=== PATIENT | female | born 1930 | race Caucasian/White ===

== ENCOUNTER 2018-08-05 12:26 | Emergency (ER) | payer OTHER ==
[~2018-08-05] VITALS: Ht 165.1 cm; Wt 55.0 kg
[2018-08-05 12:38] VITALS: Ht 165.1 cm; Wt 55.0 kg
[2018-08-05] MEDS ORDERED: LEVETIRACETAM 500 MG (PMX) 100 ML IVPB STA (12:43)
[2018-08-05] MEDS ORDERED: SOD CHLORIDE 0.9% 500 ML IV STA (12:43)
[2018-08-05] MEDS ORDERED: KEP100S PO (14:09)
[2018-08-05] MEDS ORDERED: MORP10DI10 SL (14:10)
[2018-08-05] MEDS ORDERED: QUET25TA PO (14:12)
--- NOTE | 2018-08-05 14:14 | ERD ---
ER Documentation Chief Complaint Chief Complaint seizure lasted 30 secs while sitting on the dinning room table HPI This is an 87-year-old female who is here for seizure. She had 30 second generalized tonic-clonic seizure just prior to arrival with a postictal state according to EMS. Currently the patient is awake but is still a bit confused being postictal. No other known history of events she takes Keppra ROS All systems reviewed and are negative except as per history of present illness. Medications Home Meds Active Scripts Ciprofloxacin Hcl* (Ciprofloxacin Hcl*) 500 Mg Tablet, 500 MG PO BID for 7 Days, TAB Prov:CORONA FRANKLIN DO 08/05/18 Reported Medications Acetaminophen (PAIN & FEVER) 500 Mg Tablet, 1000 MG PO Q4H PRN for PAIN OR FE JEFF, TAB 08/05/18 Lorazepam* (Ativan* Intensol) 2 Mg/Ml Soln, 0.5 ML PO Q6H PRN for AGITATION, #1 BOTTLE 08/05/18 Ipratropium-Albuterol (Ipratropium-Albuterol) 0.5-3 Mg/3 Ml Ampul.neb, 3 ML INHALATION Q6, #30 VIAL 08/05/18 Atropine Sulfate/0.9 %Sod Chlr (Atropine 0.01%-Ns Eye Drops) 10 Ml Drops, 3 DRP PO Q3H, BOTTLE 08/05/18 Acetaminophen* (Feverall* Supp) Unknown Strength Supp.rect, 650 MG WI Q6H PRN for PAIN OR FEVER>100F, SUPP.RECT 08/05/18 Quetiapine Fumarate* (Seroquel*) 25 Mg Tablet, 25 MG PO BID, #60 TAB TAKE 1 TAB-BID, AND 1 TAB Q4H- NEEDED 08/05/18 Morphine Sulfate* (Morphine* Liq) 10 Mg/0.5 Ml Disp.syrin, 0.05 ML SL Q6H PRN for PAIN, ML 08/05/18 Levetiracetam* (Keppra* (Ped)) 100 Mg/Ml Liq, 5 ML PO BID for 30 Days, BOTTLE 08/05/18 Allergies Allergies: Coded Allergies: No Known Allergy (Unverified , 08/05/18) FmHx Unable to obtain due to mental status Physical Exam Vitals Vital Signs Date Temp Pulse Resp B/P (MAP) Pulse Ox O2 O2 Flow FiO2 Time Delivery Rate 08/05/18 97.8 88 16 160/89 100 Nasal 2.0 15:47 (112) Cannula 08/05/18 87 15 155/99 100 Nasal 2.0 13:47 (117) Cannula 08/05/18 98.1 95 18 103/52 99 12:38 (69) Physical Exam Const: Well-developed, well-nourished Head: Atraumatic, normocephalic Eyes: Normal Conjunctiva, PERRLA, EOMI, normal sclera, no nystagmus ENT: Normal External Ears, Nose and Mouth, moist mucus membranes. Neck: Full range of motion. No meningismus, no lymphadenopathy. Resp: Clear to auscultation bilaterally, no wheezing, rhonchi, rales Cardio: Regular rate and rhythm, no murmurs, S1 S2 present Abd: Soft, non tender x 4, non distended. Normal bowel sounds, no guarding or rebound, no pulsitile abdominal masses or bruits Skin: No petechiae or rashes, no ecchymosis , no maculopapular rash Back: No midline or flank tenderness Ext: No cyanosis, or edema, FROM x 4, normal inspection, neurovasc ularly intact x 4 Neur: Awake and alert, STR 5/5 x 4, sensation intact x 4, no focal findings, cerebellum intact Psych: Unable to assess Result Diagram: 08/05/18 1326 08/05/18 1326 Results 24 hrs Laboratory Tests Test 08/05/18 13:26 08/05/18 15:15 White Blood Count 11.2 10^3/ul Red Blood Count 4.66 10^6/ul Hemoglobin 15.3 g/dl Hematocrit 45.4 % Mean Corpuscular Volume 97.4 fl Mean Corpuscular Hemoglobin 32.8 pg Mean Corpuscular Hemoglobin Concent 33.7 g/dl Red Cell Distribution Width 12.9 % Platelet Count 241 10^3/UL Mean Platelet Volume 11.4 fl Immature Granulocytes % 0.400 % Neutrophils % 66.2 % Lymphocytes % 23.7 % Monocytes % 7.0 % Eosinophils % 2.1 % Basophils % 0.6 % Nucleated Red Blood Cells % 0.0 /100WBC Immature Granulocytes # 0.040 10^3/ul Neutrophils # 7.4 10^3/ul Lymphocytes # 2.7 10^3/ul Monocytes # 0.8 10^3/ul Eosinophils # 0.2 10^3/ul Basophils # 0.1 10^3/ul Nucleated Red Blood Cells # 0.0 10^3/ul Sodium Level 141 mmol/L Potassium Level 4.0 mmol/L Chloride Level 106 mmol/L Carbon Dioxide Level 23 mmol/L Anion Gap 12 Blood Urea Nitrogen 38 mg/dl Creatinine 1.62 mg/dl Est Glomerular Filtrat Rate mL/min mL/min Glucose Level 95 mg/dl Calcium Level 9.8 mg/dl Total Bilirubin 0.5 mg/dl Direct Bilirubin 0.00 mg/dl Indirect Bilirubin 0.5 mg/dl Aspartate Amino Transf (AST/SGOT) 23 IU/L Alanine Aminotransferase (ALT/SGPT) 12 IU/L Alkaline Phosphatase 73 IU/L Total Protein 6.8 g/dl Albumin 3.9 g/dl Globulin 2.90 g/dl Albumin/Globulin Ratio 1.34 Urine Color YELLOW Urine Clarity SLIGHTLY CLOUDY Urine pH 5.0 Urine Specific [place] 1.013 Urine Ketones NEGATIVE mg/dL Urine Nitrite POSITIVE mg/dL Urine Bilirubin NEGATIVE mg/dL Urine Urobilinogen NEGATIVE mg/dL Urine Leukocyte Esterase 1+ Kateryna/ul Urine Microscopic RBC 1 /HPF Urine Microscopic WBC 13 /HPF Urine Bacteria FEW /HPF Urine Hemoglobin NEGATIVE mg/dL Urine Glucose NEGATIVE mg/dL Urine Total Protein NEGATIVE mg/dl Current Medications Medications Dose Sig/Tavo Start Time Status Last (Trade) Ordered Route PRN Stop Time Admin Dose Reason Admin Sodium 500 ml @ Q1H STAT 08/05/18 DC 08/05/18 Chloride 500 mls/hr IV 12:43 13:41 08/05/18 13:42 100 ml @ ONCE STAT 08/05/18 DC 08/05/18 Levetiracetam 400 mls/hr IVPB 12:43 13:42 08/05/18 12:57 Ceftriaxone 50 ml @ ONCE ONCE 08/05/18 Sodium 100 mls/hr IVPB 16:00 08/05/18 16:29 Procedures/MDM Ordering MD: CORONA FRANKLIN DO Location: E/R Room/Bed: PROCEDURE: XR Chest. CLINICAL INDICATION: Seizure. TECHNIQUE: AP Portable chest. COMPARISON: [facility] DX CHEST 12/09/2017 and chest x-ray 03/17/2018. FINDINGS: The cardiomediastinal silhouette is normal. Atherosclerotic calcifications of the thoracic aorta are again identified. Mild increased bronchovascular markings in the left lower lobe are noted and unchanged, possibly reflective of scarring/atelectasis. There does appear to be a calcified granuloma in the left lower lobe. Minimal subsegmental atelectasis is seen in the right lower lobe. Slight blunting of the left costophrenic angle is evident and may reflect a degree of scarring. Degenerative changes of the thoracic spine are noted with chronic compression moderate to severe compression fractures of the mid and lower thoracic vertebra. IMPRESSION: 1. Diminished lung volumes with subsegmental bibasilar atelectasis and possible scarring in the left lower lobe. 2. There appears to be calcified granuloma in the left lung base. 3. Atherosclerotic calcifications of the thoracic aorta. RPTAT: PP .Nel Lee MD, MD Date Time Electronically viewed and signed by .Nel Lee MD, MD on 08/05/2018 13:29 .H/ CC: CORONA FRANKLIN DO [id number] Ordering MD: CORONA FRANKLIN DO Location: E/R Room/Bed: PROCEDURE: CT Brain without contrast. CLINICAL INDICATION: Seizure. TECHNIQUE: A CT of the brain was performed on a multi-slice CT scanner utilizing axial imaging from the skull base through the vertex without intravenous contrast. Multiplanar reformatted images were made. One or more the following dose reduction techniques were utilized: Automated exposure control, adjustment of the mA/ or kV according to patient's size, or use of iterative reconstruction technique. DICOM images are available for review. The CTDIvol is 48.0 mGy and the DLP is 831.5 mGycm. COMPARISON: CT BRAIN 03/21/2018 FINDINGS: There is no intracranial hemorrhage, mass effect, or midline shift. No extra- axial fluid collection is seen. 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 Ex vacuo dilatation of the left lateral ventricle is evident. There is mild left-sided [place] degeneration. Mild underlying atrophy is identified with compensatory ventricular and sulcal enlargement. Moderate decreased attenuation is seen in the periventricular and deep white matter, compatible with microvascular ischemic disease. The calvo white matter differentiation is well preserved with no acute infarct detected. The osseous structures and visualized paranasal sinuses are unremarkable. IMPRESSION: 1. No evidence of acute intracranial pathology. The brain is stable in appearance. 2. Chronic left MCA territory infarct as previously noted with ex vacuo dilatation of the left lateral ventricle. The findings are without significant interval change. 3. There is mild underlying atrophy with moderate microvascular ischemic disease in the periventricular and deep white matter. RPTAT: PP .Nel Lee MD, MD Date Time Electronically viewed and signed by .Nel Lee MD, MD on 08/05/2018 13:26 .H/ CC: CORONA FRANKLIN DO [id number] The patient's daughter called and she was very upset that the patient was sent to the ER. The patient is on hospice I do not want any further admissions to hospitals or require any further care. I reviewed the labs and radiology findings with the daughter and I was pending a urine. The patient's daughter stated that she wants her sent back to the hospice facility without question. I told her if the patient ends up having a UTI I will give her a prescription for antibiotics and send her back at her request, she agreed with this plan and was very appreciative Departure Diagnosis: Primary Impression: Seizure disorder Additional Impression: UTI (urinary tract infection) Urinary tract infection type: acute cystitis Hematuria presence: without hematuria Qualified Codes: N30.00 - Acute cystitis without hematuria Condition: Stable CORONA FRANKLIN DO Aug 05, 2018 14:14
[2018-08-05] MEDS ORDERED: ACET120S37 PR (14:16)
[2018-08-05] MEDS ORDERED: ATRO10DR PO (14:21)
[2018-08-05] MEDS ORDERED: IPRA3AMP29 INHALATION (14:22)
[2018-08-05] MEDS ORDERED: ATILIQ PO (14:23)
[2018-08-05] MEDS ORDERED: ACET500T76 PO (14:25)
[2018-08-05] MEDS ORDERED: CEFTRIAXONE 1 GM/50 ML (PMX) 50 ML IVPB ONE (16:00)
[2018-08-05] MEDS ORDERED: CIPR500T4 PO (16:03)
[2018-08-05 21:09] VITALS: BP 148/94; PULSE 78; RESP 18
== END 2018-08-05 21:10 | disposition home or self-care (01) ==
LOC: E/R 12:26
DX: G40.909 Epilepsy, unspecified, not intractable, without status epilepticus (principal); N30.00 Acute cystitis without hematuria
CPT/HCPCS: 36415; 70450; 71045; 80053; 81001; 85025; 87086; 96374; 96375; 99285; J0696; J1953; J7040; P9612

== ENCOUNTER 2018-12-03 06:19 | Emergency (ER) | payer OTHER ==
[~2018-12-03] VITALS: Ht 157.5 cm; Wt 65.0 kg
[~2018-12-03 06:19] MED LIST: ACET120S37 PR; ACET500T76 PO; ATILIQ PO; ATRO10DR PO; CIPR500T4 PO; IPRA3AMP29 INHALATION; KEP100S PO; MAGN400O19 PO; MORP10DI10 SL; QUET25TA PO; SENN-120 PO
[2018-12-03 06:22] VITALS: Ht 157.5 cm; Wt 65.0 kg
[2018-12-03] MEDS ORDERED: SOD CHLORIDE 0.9% 500 ML IV STA (06:32)
[2018-12-03 10:57] VITALS: BP 151/88; PULSE 88; RESP 20
== END 2018-12-03 11:00 | disposition home or self-care (01) ==
LOC: E/R 06:19
DX: S00.83XA Contusion of other part of head, initial encounter (principal); R40.2142 Coma scale, eyes open, spontaneous, at arrival to emergency department; R40.2362 Coma scale, best motor response, obeys commands, at arrival to emergency department; R40.2242 Coma scale, best verbal response, confused conversation, at arrival to emergency department; W18.39XA Other fall on same level, initial encounter; Y92.129 Unspecified place in nursing home as the place of occurrence of the external cause
CPT/HCPCS: 36415; 70450; 71045; 72125; 80048; 84484; 85025; 85610; 85730; 93005; 99285; J7040